=== PATIENT | male | born 1950 | race Caucasian/White ===

== ENCOUNTER 2019-03-09 05:57 | Inpatient (IN) | payer MEDICARE ==
[2019-03-09] MEDS ORDERED: NORMAL SALINE 1000 ML 1,000 ML IV ONE (06:42)
--- NOTE | 2019-03-09 06:51 | ER Document Report ---
ED General - General Chief Complaint: Chest Pain Stated Complaint: ABDOMINAL PAIN,CHEST PAIN Time Seen by Provider: 03/09/19 06:31 Primary Care Provider: CAROL ANN KNIGHT MD [Primary Care Provider] - Follow up as needed Mode of Arrival: Ambulatory Information source: Patient, Relative Notes: This 68-year-old male patient comes emergency room complaining of onset 10 AM last night of left chest and upper abdominal pain. It prevented him from sleeping, at 3 AM he took one nitroglycerin with some relief for about 15 minutes, then the pain came back. He reports he did become diaphoretic and took a shower. About 5 AM he took another nitroglycerin without any improvement. At 5:20 AM he took 1 baby aspirin and since then the pain has improved somewhat but is still present. There is no shortness of breath there is no radiation of the pain. Past medical history significant for coronary artery stent 1996, three- vessel bypass in 1997. He has had no issues since the bypass in 1997. He reports the pain right now is a throbbing pain in his left inferior chest and upper abdomen. The patient and spouse report that they are both DNR status if something should happen and they required resuscitation. TRAVEL OUTSIDE OF THE [place] IN LAST 30 DAYS: No - Related Data Allergies/Adverse Reactions: adhesive tape Adverse Reaction (Verified 03/09/19 06:32) Home Medications: metoprolol 25 mg bid. lisinopril 20 mg qam. avorstatin 20 mg qhs Past Medical History - General Information source: Patient - Social History Smoking Status: Former Smoker Cigarette use (# per day): No - Quit 21 years ago after his stent and bypass surgery Chew tobacco use (# tins/day): No Smoking Education Provided: No Frequency of alcohol use: Occasional Drug Abuse: None Occupation: Retired Lives with: Spouse/Significant other - Recently moved to this area from [place] Family History: Reviewed & Not Pertinent Patient has suicidal ideation: No Patient has homicidal ideation: No - Past Medical History Cardiac Medical History: Reports: Hx Coronary Artery Disease, Hx Hypercholesterolemia, Hx Hypertension Past Surgical History: Reports: Hx Cardiac Catheterization, Hx Coronary Artery Bypass Graft - Three-vessel bypass 1997, Hx Coronary Stent - 1 stent in 1996 Review of Systems - Review of Systems Constitutional: No symptoms reported EENT: No symptoms reported Cardiovascular: See HPI Respiratory: No symptoms reported Gastrointestinal: No symptoms reported Genitourinary: No symptoms reported Musculoskeletal: No symptoms reported Skin: No symptoms reported Hematologic/Lymphatic: No symptoms reported Neurological/Psychological: No symptoms reported Physical Exam - Vital signs Vitals: Temp Pulse Resp BP Pulse Ox 97.1 F 50 L 16 158/67 H 98 03/09/19 06:13 03/09/19 06:13 03/09/19 06:13 03/09/19 06:13 03/09/19 06:13 - General General appearance: Appears well, Alert In distress: None - Patient appears quite stoic - HEENT Head: Normocephalic, Atraumatic Eyes: Normal Pupils: PERRL Mucous membranes: Dry Neck: Normal - Respiratory Respiratory status: No respiratory distress Breath sounds: Normal - Cardiovascular Rhythm: Regular Heart sounds: Normal auscultation Murmur: No - Abdominal Inspection: Normal Distension: No distension Bowel sounds: Normal Tenderness: Tender - Patient is tender in the left medial epigastric region, and tenderness on palpation going distally just along the left medial abdomen. Fem oral pulses are strong and equal. - Back Back: Normal - Extremities General upper extremity: Normal inspection General lower extremity: Normal inspection. No: Edema - Neurological Neuro grossly intact: Yes - Psychological Associated symptoms: Normal affect, Normal mood - Skin Skin Temperature: Warm Skin Moisture: Dry Skin Color: Normal Course - Re-evaluation Re-evalutation: 03/09/19 09:04 Ultrasound shows stones in the gallbladder neck. It does not look like acute cholecystitis. The patient's white blood cell count is elevated with a shift suggesting an infectious process. He will be started on Zosyn, kept n.p.o., and Dr. Ramon is coming to see the patient. 03/09/19 12:09 Dr. Ramon requested I have the hospitalist service admit the patient due to his prior cardiac history, and that he would operate on him in the morning. - Vital Signs Vital signs: Temp Pulse Resp BP Pulse Ox 98.0 F 63 24 H 151/70 H 96 03/09/19 07:37 03/09/19 07:37 03/09/19 11:01 03/09/19 11:01 03/09/19 11:01 - Laboratory Result Diagrams: 03/09/19 07:06 03/09/19 07:06 Laboratory results interpreted by me: 03/09/19 03/09/19 03/09/19 07:06 07:06 07:06 WBC 17.2 H Seg Neuts % (Manual) 89 H Lymphocytes % (Manual) 6 L Abs Neuts (Manual) 15.3 H D-Dimer 0.78 H Sodium 145.3 H BUN 21 H Glucose 150 H Calcium 10.3 H Urine Urobilinogen 03/09/19 08:48 WBC Seg Neuts % (Manual) Lymphocytes % (Manual) Abs Neuts (Manual) D-Dimer Sodium BUN Glucose Calcium Urine Urobilinogen 4.0 H - Diagnostic Test Radiology reviewed: Image reviewed, Reports reviewed - Abdominal ultrasound shows stones in the gallbladder neck, no other abnormalities. - EKG Interpretation by Me EKG shows normal: Sinus rhythm, Seym[place], Intervals, QRS Complexes, ST-T Waves Rate: Bradycardia - 50 Seymour/QRS: RBBB When compared to previous EKG there are: Previous EKG unavailable - Consults Dr. Ramon Time consulted: 09:01 Reason for consultation: 03/09/19 12:10 Gallstone in the gallbladder neck. Consulted provider: will come to ER Dr. Pablo Time consulted: 12:05 Reason for consultation: 03/09/19 12:10 Surgical history requests the hospitalist admit the patient and he will operate on the patient tomorrow morning. Consulted provider: will come to ER Discharge - Discharge Clinical Impression: Cholelithiasis Qualifiers: Cholelithiasis location: gallbladder Cholecystitis presence: with cholecystitis Biliary obstruction: without biliary obstruction Qualified Code(s): K80.20 - Calculus of gallbladder without cholecystitis without obstruction Leukocytosis Qualifiers: Leukocytosis type: unspecified Qualified Code(s): D72.829 - Elevated white blood cell count, unspecified Condition: Stable Disposition: ADMITTED OBSERVATION Admitting Provider: Bev (Hospitalist) Unit Admitted: Telemetry Referrals: CAROL ANN KNIGHT MD [Primary Care Provider] - Follow up as needed
[2019-03-09 07:30] LABS: HEMATOCRIT 47.2 % (37.9-51.0); HEMOGLOBIN 15.9 g/dL (13.5-17.0); MEAN CORPUSCULAR HEMOGLOBIN 29.8 pg (27.0-33.4); MEAN CORPUSCULAR HGB CONC 33.7 g/dL (32.0-36.0); MEAN CORPUSCULAR VOLUME 88 fl (80-97); PLATELET COUNT 186 10^3/uL (150-450); RED BLOOD COUNT 5.35 10^6/uL (4.35-5.55); WHITE BLOOD COUNT 17.2 10^3/uL (4.0-10.5)
--- NOTE | 2019-03-09 07:51 | RADIOLOGY REPORT (SQ) ---
Chest single view on 03/09/2019 at 6:57 AM CLINICAL INDICATION: Chest pain COMPARISON: None FINDINGS: The patient is status post median sternotomy and CABG. The lungs are clear. Cardiac, hilar and mediastinal contours are within normal limits. Pulmonary vascularity is within normal limits. IMPRESSION: No acute disease.
[2019-03-09 07:52] LABS: ALBUMIN 4.9 g/dL (3.5-5.0); ALKALINE PHOSPHATASE 95 U/L (38-126); ANION GAP 14 (5-19); ASPARTATE AMINO TRANSFERASE 26 U/L (17-59); BILIRUBIN,DIRECT 0.2 mg/dL (0.0-0.4); BILIRUBIN,TOTAL 0.8 mg/dL (0.2-1.3); BLOOD UREA NITROGEN 21 mg/dL (7-20); CALCIUM 10.3 mg/dL (8.4-10.2); CARBON DIOXIDE 25 mmol/L (22-30); CHLORIDE 106 mmol/L (98-107); CREATINE KINASE 146 U/L (55-170); GLUCOSE 150 mg/dL (75-110); TOTAL PROTEIN 8.2 g/dL (6.3-8.2)
[2019-03-09 08:00] LABS: ABSOLUTE MONOCYTES # (MANUAL) 0.9 10^3/uL (0.1-1.4); BASOPHILS % (MANUAL) 0 % (0-2); EOSINOPHILS % (MANUAL) 0 % (0-6); LYMPHOCYTES % (MANUAL) 6 % (13-45); MONOCYTES % (MANUAL) 5 % (3-13); PLATELET COMMENT ADEQUATE; RBC MORPHOLOGY COMMENT N; SEGMENTED NEUTROPHILS % (MAN) 89 % (42-78); TOTAL CELLS COUNTED 100; TOXIC VACUOLATION PRESENT
--- NOTE | 2019-03-09 08:30 | RADIOLOGY REPORT (SQ) ---
EXAM DESCRIPTION: U/S ABDOMEN LIMITED W/O DOP COMPLETED DATE/TIME: 03/09/2019 7:32 am REASON FOR STUDY: Epigastric pain, image GB, pancreas, aorta COMPARISON: None. TECHNIQUE: Dynamic and static grayscale images acquired of the abdomen and recorded on PACS. Additio nal selected color Doppler and spectral images recorded. LIMITATIONS: Limited visualization. Poor acoustical window FINDINGS: PANCREAS: No masses. Visualized pancreatic duct normal caliber. LIVER: Normal size Mild fatty infiltration. No focal masses. LIVER VASCULATURE: Normal directional flow of the main portal vein and hepatic veins. GALLBLADDER: Stones in the gallbladder neck. Normal wall thickness. No pericholecystic fluid. ULTRASOUND-DETECTED WILHELM'S SIGN: Negative. INTRAHEPATIC DUCTS AND COMMON DUCT: CBD and intrahepatic ducts normal caliber. No filling defects. INFERIOR VENA CAVA: Normal flow. AORTA: No aneurysm. RIGHT KIDNEY: Normal size. Normal echogenicity. No solid or suspicious masses. No hydronephros is. No calcifications. PERITONEAL AND RIGHT PLEURAL SPACE: No ascites or effusions. OTHER: No other significant findings. IMPRESSION: Cholelithiasis. No evidence of acute cholecystitis. TECHNICAL DOCUMENTATION: JOB ID: [id number] [employer]- All Rights Reserved Reading location - IP/workstation name: [email or web address]
[2019-03-09] MEDS ORDERED: PIPERACILLIN/TAZOBACTAM 3.375 GM VIAL IV ONE (09:03)
[2019-03-09 09:25] LABS: APPEARANCE,URINE SLIGHTLY-CLOUDY; BILIRUBIN,URINE NEGATIVE (NEGATIVE); COLOR,URINE YELLOW; GLUCOSE, URINE NEGATIVE (NEGATIVE); KETONES,URINE NEGATIVE (NEGATIVE); LEUKOCYTE ESTERASE,URINE NEGATIVE (NEGATIVE); NITRITE,URINE NEGATIVE (NEGATIVE); PROTEIN,URINE NEGATIVE (NEGATIVE); URINE SPECIFIC GRAVITY 1.021
--- NOTE | 2019-03-09 12:10 | PDOC CONSULTATION ---
Consultation Consult Date: 03/09/19 Provider Consulted: YOSELYN DIXON Consult reason:: Gallstones with right upper quadrant pain History of Present Illness Admission Date/PCP: CAROL ANN KNIGHT MD History of Present Illness: SHIRA DICKENS is a 68 year old male with history of coronary artery disease and hypertension complain of right upper quadrant and epigastric pains around 10:00 last night after a fatty meal. Pains persisted through the night associated with mild nausea and went to ED this morning. Denies any fever nor chills Past Medical History Cardiac Medical History: Reports: Coronary Artery Disease, Hyperlipidema, Hypertension Past Surgical History Past Surgical History: Reports: Cardiac Catheterization, Coronary Artery Bypass Graft - Three-vessel bypass 1997, Coronary Stent - 1 stent in 1996 Social History Lives with: Spouse/Significant other - Recently moved to this area from [place] Smoking Status: Former Smoker Electronic Cigarette use?: No Frequency of Alcohol Use: Occasional Family History Family History: Reviewed & Not Pertinent Parental Family History Reviewed: Yes Children Family History Reviewed: No Sibling(s) Family History Reviewed.: No Medication/Allergy Allergies/Adverse Reactions: adhesive tape Adverse Reaction (Verified 03/09/19 06:32) Review of Systems Constitutional: PRESENT: as per HPI Gastrointestinal: PRESENT: abdominal pain, nausea Physical Exam Vital Signs: Temp Pulse Resp BP Pulse Ox 98.0 F 63 24 H 151/70 H 96 03/09/19 07:37 03/09/19 07:37 03/09/19 11:01 03/09/19 11:01 03/09/19 11:01 Intake & Output 03/08/19 03/09/19 03/10/19 06:59 06:59 06:59 Intake Total 1000 Balance 1000 Weight 113.1 kg General appearance: PRESENT: mild distress Head exam: PRESENT: atraumatic Eye exam: PRESENT: conjunctiva pink Mouth exam: PRESENT: moist Neck exam: PRESENT: full ROM Respiratory exam: PRESENT: clear to auscultation emigdio Cardiovascular exam: PRESENT: RRR Pulses: PRESENT: normal radial pulses Vascular exam: PRESENT: normal capillary refill GI/Abdominal exam: PRESENT: soft, tenderness - Right upper quadrant Rectal exam: PRESENT: deferred Extremities exam: PRESENT: full ROM Musculoskeletal exam: PRESENT: full ROM Neurological exam: PRESENT: alert, oriented to person, oriented to place, oriented to time, oriented to situation Psychiatric exam: PRESENT: appropriate affect Skin exam: PRESENT: normal color, warm Results Laboratory Results: 03/09/19 07:06 03/09/19 07:06 03/09/19 03/09/19 03/09/19 07:06 07:06 08:48 WBC 17.2 H RBC 5.35 Hgb 15.9 Hct 47.2 MCV 88 MCH 29.8 MCHC 33.7 RDW 13.0 Plt Count 186 Seg Neutrophils % Not Reportable Sodium 145.3 H Potassium 4.0 Chloride 106 Carbon Dioxide 25 Anion Gap 14 BUN 21 H Creatinine 0.99 Est GFR ( Amer) > 60 Glucose 150 H Calcium 10.3 H Total Bilirubin 0.8 AST 26 Alkaline Phosphatase 95 Total Protein 8.2 Albumin 4.9 Lipase 127.9 Urine Color YELLOW Urine Appearance SLIGHTLY-CLOUDY Urine pH 8.0 Ur Specific [place] 1.021 Urine Protein NEGATIVE Urine Glucose (UA) NEGATIVE Urine Ketones NEGATIVE Urine Blood NEGATIVE Urine Nitrite NEGATIVE Ur Leukocyte Esterase NEGATIVE Urine WBC (Auto) 1 Urine RBC (Auto) 3 03/09/19 03/09/19 07:06 07:06 Creatine Kinase 146 Troponin I < 0.012 Impressions: Chest X-Ray 03/09/19 06:42 IMPRESSION: No acute disease. Abdomen Ultrasound 03/09/19 06:43 IMPRESSION: Cholelithiasis. No evidence of acute cholecystitis. Assessment & Plan - Diagnosis (1) Acute cholecystitis Is this a current diagnosis for this admission?: Yes (2) Cholelithiasis Qualifiers: Cholelithiasis location: gallbladder Cholecystitis presence: with henny cystitis Biliary obstruction: without biliary obstruction Qualified Code(s): K80.20 - Calculus of gallbladder without cholecystitis without obstruction Is this a current diagnosis for this admission?: Yes (3) Leukocytosis Qualifiers: Leukocytosis type: unspecified Qualified Code(s): D72.829 - Elevated white blood cell count, unspecified - Time Time Spent: 30 to 50 Minutes - Inpatient Certification Medical Necessity: Need For IV Fluids, Need for Pain Control, Need for IV Antibiotics, Need for Surgery - Plan Summary Plan Summary: 6-year-old male with coronary artery disease and hypertension complaining of right upper quadrant pains after a fatty meal last night. Ultrasound of the abdomen today showed gallstones possibly obstructing the cystic duct. His white count is elevated. Plans: We will schedule for laparoscopic cholecystectomy tomorrow after medical clearance. Meantime continue with IV antibiotics and n.p.o. from midnight
[2019-03-09] MEDS: NORMAL SALINE 1000 ML 1,000 ML IV PRN (15:45)
--- NOTE | 2019-03-09 17:20 | EKG REPORT ---
SEVERITY:- ABNORMAL ECG - ACCELERATED IDIOVENTRICULAR RHYTHM (2 BEATS)BEFORE SINUS RHYTHM SINUS RHYTHM RIGHT BUNDLE BRANCH BLOCK : Confirmed by: Noman Allen MD 09-Mar-2019 17:19:44
--- NOTE | 2019-03-09 17:37 | RADIOLOGY REPORT (SQ) ---
EXAM DESCRIPTION: NM LUNG VENT/PERF SCAN COMPLETED DATE/TIME: 03/09/2019 5:07 pm REASON FOR STUDY: cp, new RBBB, elevated d-dimer COMPARISON: Earlier chest radiograph RADIONUCLIDE AND DOSE: 5.24 millicuries TC-99m MAA Intravenous 31.7 millicuries TC-99m DTPA Inhaled aerosol TECHNIQUE: Eight views of the lungs acquired post ventilation of DTPA aerosol. Eight matching views of the lungs acquired following injection of MAA. LIMITATIONS: None. FINDINGS: VENTILATION: Symmetric and minimally heterogeneous distribution of DTPA aerosol during santosh tilatory phase. No significant areas of photopenia. PERFUSION: Perfusion images with minimally heterogeneous activity and no wedge-shaped or segmental de fects. No ventilation-perfusion mismatches. OTHER: No other significant finding. IMPRESSION: No ventilation-perfusion mismatches. TECHNICAL DOCUMENTATION: JOB ID: [id number] [place]-[id number] 2010 [employer]- All Rights Reserved Reading location - IP/workstation name: [email or web address]
--- NOTE | 2019-03-09 18:47 | PDOC H&P ---
History of Present Illness Admission Date/PCP: CAROL ANN KNIGHT MD Patient complains of: epigastric pain History of Present Illness: SHIRA DICKENS is a 68 year old male past medical history of CAD, with prior stenting, history of artery bypass in 1997, hypertension and hyperlipidemia who presented with epigastric pain. Patient says he has been apparently fine until last night when he started having epigastric pain, sharp in character, 8/10 intensity. He says that he did eat some pizza last night. He denies shortness of breath. He says that he took s ome nitro around 2 AM and did get some relief. He also took some aspirin and reported some relief from it. In the ER, work-up was remarkable for cholelithiasis. He does indicate it is more of epigastric and right-sided costal pain rather than chest pain. He denies shortness of breath. Past Medical History Cardiac Medical History: Reports: Coronary Artery Disease, Hyperlipidema, Hypertension Past Surgical History Past Surgical History: Reports: Cardiac Catheterization, Coronary Artery Bypass Graft - Three-vessel bypass 1997, Coronary Stent - 1 stent in 1996 Social History Lives with: Spouse/Significant other - Recently moved to this area from [place] Smoking Status: Former Smoker Electronic Cigarette use?: No Frequency of Alcohol Use: Occasional Family History Family History: Reviewed & Not Pertinent Parental Family History Reviewed: Yes - no premature CAD Children Family History Reviewed: No Sibling(s) Family History Reviewed.: No Medication/Allergy Home Medications: Aspirin [Ecotrin 81 mg EC Tablet] 81 mg PO DAILY 03/09/19 Atorvastatin Calcium [Lipitor 20 mg Tablet] 20 mg PO QPM 03/09/19 Lisinopril [Prinivil 10 mg Tablet] 10 mg PO DAILY 03/09/19 Metoprolol Tartrate [Lopressor 25 mg Tablet] 25 mg PO Q12 03/09/19 Nitroglycerin [Nitrostat] 0.3 mg SL Q5MP PRN 03/09/19 Vitamin B Complex [Super B Complex] 1 each PO QPM 03/09/19 Allergies/Adverse Reactions: adhesive tape Adverse Reaction (Verified 03/09/19 06:32) Review of Systems All systems: reviewed and no additional remarkable complaints except as stated - as mentioned in HPI Physical Exam Vital Signs: Temp Pulse Resp BP Pulse Ox 98.0 F 63 24 H 151/70 H 96 03/09/19 07:37 03/09/19 07:37 03/09/19 11:01 03/09/19 11:01 03/09/19 11:01 Intake & Output 03/08/19 03/09/19 03/10/19 06:59 06:59 06:59 Intake Total 1000 Balance 1000 Weight 249 lb 5.485 oz General appearance: PRESENT: no acute distress, well-developed, well-nourished Head exam: PRESENT: atraumatic, normocephalic Eye exam: PRESENT: conjunctiva pink, EOMI, PERRLA. ABSENT: scleral icterus Ear exam: PRESENT: normal external ear exam Mouth exam: PRESENT: moist, tongue midline Neck exam: ABSENT: carotid bruit, JVD, lymphadenopathy, thyromegaly Respiratory exam: PRESENT: clear to auscultation emigdio. ABSENT: rales, rhonchi, wheezes Cardiovascular exam: PRESENT: RRR. ABSENT: diastolic murmur, rubs, systolic murmur Pulses: PRESENT: normal dorsalis pedis pul GI/Abdominal exam: PRESENT: normal bowel sounds, soft. ABSENT: distended, guarding, mass, organolmegaly, rebound, tenderness Rectal exam: PRESENT: deferred Extremities exam: PRESENT: full ROM. ABSENT: calf tenderness, clubbing, pedal edema Neurological exam: PRESENT: alert, awake, oriented to person, oriented to place, oriented to time, oriented to situation, CN II-XII grossly intact. ABSENT: motor sensory deficit Results Laboratory Results: 03/09/19 07:06 03/09/19 07:06 03/09/19 03/09/19 03/09/19 07:06 07:06 08:48 WBC 17.2 H RBC 5.35 Hgb 15.9 Hct 47.2 MCV 88 MCH 29.8 MCHC 33.7 RDW 13.0 Plt Count 186 Seg Neutrophils % Not Reportable Sodium 145.3 H Potassium 4.0 Chloride 106 Carbon Dioxide 25 Anion Gap 14 BUN 21 H Creatinine 0.99 Est GFR ( Amer) > 60 Glucose 150 H Calcium 10.3 H Total Bilirubin 0.8 AST 26 Alkaline Phosphatase 95 Total Protein 8.2 Albumin 4.9 Lipase 127.9 Urine Color YELLOW Urine Appearance SLIGHTLY-CLOUDY Urine pH 8.0 Ur Specific [place] 1.021 Urine Protein NEGATIVE Urine Glucose (UA) NEGATIVE Urine Ketones NEGATIVE Urine Blood NEGATIVE Urine Nitrite NEGATIVE Ur Leukocyte Esterase NEGATIVE Urine WBC (Auto) 1 Urine RBC (Auto) 3 03/09/19 03/09/19 07:06 07:06 Creatine Kinase 146 Troponin I < 0.012 Impressions: Chest X-Ray 03/09/19 06:42 IMPRESSION: No acute disease. Abdomen Ultrasound 03/09/19 06:43 IMPRESSION: Cholelithiasis. No evidence of acute cholecystitis. Assessment and Plan - Diagnosis (1) Epigastric pain Is this a current diagnosis for this admission?: Yes Plan: Patient indicates it is more of epigastric and right subcostal pain rather than chest pain. He denies he had left-sided chest pain. EKG shows right bundle bran ch block. Troponin is normal. No previous EKG to compare with as patient just moved from [place]. (2) Cholelithiasis Qualifiers: Cholelithiasis location: gallbladder Cholecystitis presence: with cholecystitis Biliary obstruction: without biliary obstruction Qualified Code(s): K80.20 - Calculus of gallbladder without cholecystitis without obstruction Is this a current diagnosis for this admission?: Yes Plan: He is going for laparoscopic cholecystectomy with surgery tomorrow. (3) Hypertension Is this a current diagnosis for this admission?: Yes Plan: Resume home meds once verified. (4) CAD (coronary artery disease) Is this a current diagnosis for this admission?: Yes - Time Time Spent with patient: 25-34 minutes
--- NOTE | 2019-03-09 18:48 | ADVANCED CARE ---
- Diagnosis (1) Cholelithiasis Diagnosis Current: Yes (2) CAD (coronary artery disease) Diagnosis Current: Yes (3) Hypertension Diagnosis Current: Yes Resuscitation Status: Do Not Resuscitate Discussion: Patient says that he is a DNR/DNI. He did verbalize that for the purposes of surgery however, he is amenable to temporary or short-term intubation/ventilation. He says that his , Blacna is his surrogate medical decision maker.
[2019-03-09] MEDS: HEPARIN SOD (PORCINE) 5,000 UNIT/ML 1 ML VIAL SUBCUT SCH (21:20)
[2019-03-10] MEDS: NORMAL SALINE 1000 ML 1,000 ML IV PRN (02:42)
[2019-03-10] MEDS: HEPARIN SOD (PORCINE) 5,000 UNIT/ML 1 ML VIAL SUBCUT SCH ×2 (09:11→22:25)
[2019-03-10] MEDS: CEFTRIAXONE 1 GM/D5W RTU 1 GM/50 ML RTUPB IV SCH (09:14)
--- NOTE | 2019-03-10 10:03 | PDOC PROGRESS REPORT ---
Subjective Progress Note for:: 03/10/19 Reason For Visit: ATYPICAL CHEST PAIN,CHOLELITHIASIS Patient feels better; markedly relieved preadmission symptoms. He is n.p.o. Lovenox for this morning held. Physical Exam Vital Signs: Temp Pulse Resp BP Pulse Ox 99.8 F 61 17 127/56 H 96 03/10/19 07:38 03/10/19 07:38 03/10/19 07:38 03/10/19 07:38 03/10/19 07:38 Intake & Output 03/09/19 03/10/19 03/11/19 06:59 06:59 06:59 Intake Total 2660 Balance 2660 Weight 113.1 kg 115.5 kg General appearance: PRESENT: no acute distress GI/Abdominal exam: PRESENT: other - Soft, minimally tender right upper quadrant; no rigidity no peritoneal signs. Results Laboratory Results: 03/09/19 07:06 03/09/19 07:06 03/09/19 03/09/19 07:06 07:06 Creatine Kinase 146 Troponin I < 0.012 Impressions: Chest X-Ray 03/09/19 06:42 IMPRESSION: No acute disease. Abdomen Ultrasound 03/09/19 06:43 IMPRESSION: Cholelithiasis. No evidence of acute cholecystitis. Lung Scan-VQ NM 03/09/19 14:15 IMPRESSION: No ventilation-perfusion mismatches. Assessment & Plan - Diagnosis (1) Cholelithiasis Qualifiers: Cholelithiasis location: gallbladder Cholecystitis presence: with cholecystitis Biliary obstruction: without biliary obstruction Qualified Code(s): K80.20 - Calculus of gallbladder without cholecystitis without obstruction Is this a current diagnosis for this admission?: Yes Plan: Impression: Symptomatic cholelithiasis with cholecystitis and patient with history of coronary artery disease, status post CABG; he is a DNR. Clinically stable; acute myocardial and pulmonary issues ruled out. Recommendations: 1. We will proceed with laparoscopic, possible open cholecystectomy today, [facility], general anesthesia, by Dr. Taylor. An explanation of the operation, as well as risk benefits alternatives including bleeding, infection, bile duct injury and need for additional surgery explained to the patient. 2. Patient is a DNR by choice. I explained to the patient that his DNR status will be suspended during the duration of the operation. He expresses understanding and agrees to proceed. (2) CAD (coronary artery disease) Is this a current diagnosis for this admission?: Yes - Time Time Spent with patient: 15-24 minutes
[2019-03-10] MEDS ORDERED: MIDAZOLAM 2 MG/2 ML INJ ONE (11:35)
[2019-03-10] MEDS ORDERED: FENTANYL CITRATE INJ/PF 250 MCG/5 ML AMPULE ONE (11:35)
[2019-03-10] MEDS ORDERED: PROPOFOL INJ 200 MG/20 ML VIAL IV ONE (11:36)
[2019-03-10] MEDS ORDERED: BUPIVACAINE HCL 0.25 % INJ/PF (2.5 MG/1 ML) 30 ML VIAL ONE (11:46)
[2019-03-10] MEDS ORDERED: DIPHENHYDRAMINE HCL 50 MG/ML VIAL IV PRN (12:36)
[2019-03-10] MEDS ORDERED: MORPHINE SULFATE 10 MG/ML INJ IV PRN (12:36)
[2019-03-10] MEDS ORDERED: MEPERIDINE HCL/PF INJ 25 MG/1 ML DISP.SYRIN IV PRN (12:36)
[2019-03-10] MEDS ORDERED: PROMETHAZINE HCL INJ 25 MG/1 ML VIAL IV PRN (12:36)
[2019-03-10] MEDS ORDERED: FENTANYL CITRATE INJ/PF 100 MCG/2 ML AMPUL IV PRN ×3 (12:36)
[2019-03-10] MEDS ORDERED: BUPIVACAINE HCL 0.25 % INJ/PF (2.5 MG/1 ML) 30 ML VIAL INJ ONE ×2 (12:48)
[2019-03-10] MEDS ORDERED: DEXAMETHASONE SOD PHOSPHATE INJ 4 MG/1 ML VIAL ONE (13:05)
[2019-03-10] MEDS ORDERED: GLYCOPYRROLATE 1 MG/5 ML VIAL ONE (13:05)
[2019-03-10] MEDS ORDERED: NEOSTIGMINE METHYLSULFATE 10 MG/10 ML VIAL ONE (13:05)
[2019-03-10] MEDS ORDERED: ONDANSETRON HCL INJ/PF 4 MG/2 ML SDV ONE (13:05)
[2019-03-10] MEDS ORDERED: ROCURONIUM BROMIDE INJ 50 MG/5 ML VIAL IV ONE (13:05)
[2019-03-10] MEDS ORDERED: SUCCINYLCHOLINE CHLORIDE INJ 200 MG/10 ML VIAL ONE (13:05)
[2019-03-10] MEDS ORDERED: (PENDING PHARMACY ID) (Nitroglycerin [Nitrostat] 0.3 MG) SL PRN (13:50)
--- NOTE | 2019-03-10 13:51 | PDOC PROGRESS REPORT ---
Subjective Progress Note for:: 03/10/19 Subjective:: No acute event overnight. Denies chest pain or shortness of breath. He does complain of intermittent right upper quadrant, colicky abdominal pain. Patient is going for laparoscopic cholecystectomy today. We rediscussed his CODE STATUS as he mentioned in passing that his wanted him to be a full code. He confirms that he remains a DNR but is amenable to temporary intubation/mechanical ventilation for surgery purposes. Reason For Visit: ATYPICAL CHEST PAIN,CHOLELITHIASIS Physical Exam Vital Signs: Temp Pulse Resp BP Pulse Ox 99.8 F 61 17 127/56 H 96 03/10/19 07:38 03/10/19 07:38 03/10/19 07:38 03/10/19 07:38 03/10/19 07:38 Intake & Output 03/09/19 03/10/19 03/11/19 06:59 06:59 06:59 Intake Total 2660 50 Balance 2660 50 Weight 249 lb 5.485 oz 254 lb 10.142 oz General appearance: PRESENT: no acute distress, well-developed, well-nourished Head exam: PRESENT: atraumatic, normocephalic Eye exam: PRESENT: conjunctiva pink, EOMI, PERRLA. ABSENT: scleral icterus Ear exam: PRESENT: normal external ear exam Mouth exam: PRESENT: moist, tongue midline Neck exam: ABSENT: carotid bruit, JVD, lymphadenopathy, thyromegaly Respiratory exam: PRESENT: clear to auscultation emigdio. ABSENT: rales, rhonchi, wheezes Cardiovascular exam: PRESENT: RRR. ABSENT: diastolic murmur, rubs, systolic murmur Pulses: PRESENT: normal dorsalis pedis pul GI/Abdominal exam: PRESENT: normal bowel sounds, soft. ABSENT: distended, guarding, mass, organolmegaly, rebound Rectal exam: PRESENT: deferred Extremities exam: PRESENT: full ROM. ABSENT: calf tenderness, clubbing, pedal edema Neurological exam: PRESENT: alert, awake, oriented to person, oriented to place, oriented to time, oriented to situation, CN II-XII grossly intact. ABSENT: motor sensory deficit Results Laboratory Results: 03/09/19 07:06 03/09/19 07:06 03/09/19 03/09/19 07:06 07:06 Creatine Kinase 146 Troponin I < 0.012 Impressions: Chest X-Ray 03/09/19 06:42 IMPRESSION: No acute disease. Abdomen Ultrasound 03/09/19 06:43 IMPRESSION: Cholelithiasis. No evidence of acute cholecystitis. Lung Scan-VQ NM 03/09/19 14:15 IMPRESSION: No ventilation-perfusion mismatches. Assessment and Plan - Diagnosis (1) Cholelithiasis Qualifiers: Cholelithiasis location: gallbladder Cholecystitis presence: with cholecystitis Biliary obstruction: without biliary obstruction Qualified Code(s): K80.20 - Calculus of gallbladder without cholecystitis without obstruction Is this a current diagnosis for this admission?: Yes Plan: He is going for laparoscopic cholecystectomy today. (2) Epigastric pain Is this a current diagnosis for this admission?: Yes Plan: When further probed, he clarified he did not have chest pain. Secondary to number 1 rather than cardiac or pulmonary in origin. EKG showed right bundle branch block. D-dimer was elevated but VQ was negative. Troponin is normal. No previous EKG to compare with as patient just moved from [place]. (3) Hypertension Is this a current diagnosis for this admission?: Yes Plan: Resume home meds. (4) CAD (coronary artery disease) Is this a current diagnosis for this admission?: Yes Plan: Stable. - Time Time Spent with patient: 25-34 minutes
--- NOTE | 2019-03-10 14:15 | Operative Report ---
Operative Report DATE OF SURGERY: 03/10/19 PREOPERATIVE DIAGNOSIS: Acute cholecystitis with cholelithiasis POSTOPERATIVE DIAGNOSIS: Same OPERATION: 1. Laparoscopic cholecystectomy. 2. Extremely difficult modifier. 3. Drainage of subhepatic space SURGEON: DELL CIFUENTES 1ST LOT PORTER: JAIRON MERLOS ANESTHESIA: GA TISSUE REMOVED OR ALTERED: 1 gallbladder with contents COMPLICATIONS: None ESTIMATED BLOOD LOSS: 250 cc INTRAOPERATIVE FINDINGS: See below PROCEDURE: The patient was taken the preop holding her to the main operating room where general anesthesia was induced. Of note the patient preoperatively was a known DO NOT RESUSCITATE, however per hospital guidelines, the DNR status was suspended during the duration of the operation. The patient was in agreement with this. The abdomen was exposed, prepped and draped in sterile fashion. Surgical plan surgical timeout were conducted. Skin markings were made for for port laparoscopic surgery. Skin was anesthetized with 1% plain lidocaine. A supraumbilical vertical incision was made with a knife, 15 blade, Veress needle inserted the peritoneal cavity pneumoperitoneum established. Veress needle was removed, 5 mm ports established and the flexible 5 mm Endo I was inserted the peritoneal cavity. There was no evidence of visceral or vascular injury. Of note there were adhesions in the right lower quadrant consistent with previous surgery. Under direct visualization 3 additional 5 mm ports were placed in the patient one subxiphoid and 2 subcostal. Findings were significant for an acutely inflamed gallbladder, with the fundus becoming ischemic. Photos were taken. We aspirated the gallbladder for approximately 10 cc of old blood. We now placed graspers on the fundus and reflected the gallbladder up over the liver bed. Unfortunately due to body habitus, and distended, edematous nature of the gallbladder, it was difficult to get elevation of the infundibulum with the second grasper. For this reason we switched our grasper positions, and began taking the gallbladder down from the fundus. This proceeded uneventfully until we were approximately one third through the separation of the inferior surface of the liver plate with the gallbladder. We then encountered a significant amount of bleeding. It was difficult to ascertain whether this is arterial or venous but was likely arterial. At this point we came across no structures consistent with the cystic artery. The bleeding was coming from the inferior surface of the liver centrally, not on the left nor on the right sides of the peritoneal reflection. Using a combination of Surgicel and gentle pressure without success, We now introduced another 5 mm port, and a fan retractor to assist with visualizing this area however the welling up of the blood was rather brisk. I called my colleague into the room, Dr. Flex Merlos, who provided retracting assistance , visual inspection, and clinical acumen during this portion of the operation. We used a combination of suction and gentle traction to continue the posterior surface of the gallbladder from the bleeding point, now freeing up the bladder down to the infundibulum. Of note, no vascular structures were divided as none were encountered during this time. We were now able to place the Surgicel and apply direct pressure right on the bleeding site. Within a short time, the bleeding abated. We estimated that approximately 250 cc of blood was lost from the initiation of the cholecystectomy to this point in the operation. Dring this time, we had excellent visualization, tissue retraction; the patient remained hemodynamically stable. We were now able to very clearly expose the critical structures fixing the gallbladder to the patient, including the cystic duct and cystic artery. These structures were in their predictable location, however the cystic artery was generous in diameter with several branch points. Photographs were taken. We got around the cystic artery cleanly , photographed the cystic artery, clipped the cystic artery 2 times proximally once distally and divided with scissors. We now had the gallbladder suspended from the infundibular-neck junction. Order to reduce the risk of additional bleeding, and injury to more proximal structures, we elected to take the gallbladder at junction. We brought onto the field two 0 PDS loops secured them in place at the base of the infundibulum- neck junction of the gallbladder. Photos were taken. We now divided the gallbladder from the neck, allowing the cystic duct stump to retract. We now brought onto the field an Endobag through the supraumbilical port site after opening up the fascia, and placed the gallbladder and loose stones into the Endobag. The specimen was brought out of the patient through the supraumbilical port site and sent to pathology for permanent analysis We returned to the peritoneal cavity , checked for bleeding and there was none. In particular we studied the raw inferior surface of the liver, and left the Surgicel in place. Photos were taken. A large Parvez drain was placed through 1 of the subcostal incision sites and secured to the skin with 2-0 Prolene suture. The drain was placed in the subhepatic space. We levelled the patient, and checked for bleeding and there was none. We placed a few additional pieces of Surgicel in the subhepatic area. Photos were taken. The patient remained hemodynamically stable and there was no indication to manipulate the hemostatic material on the liver surface. Photos were taken. At this point we felt the operation was complete. Sponge and counts were correct. A flat lesion on the right inferior surface of the capsule of the liver insufflated and photographed. It was approximately 1.5 cm in diameter. All ports removed under direct visualization, pneumoperitoneum evacuated, wounds closed with 0 Vicryl at the supraumbilical port site, and 3-0 Vicryl at the dermal level for all 5 mm port sites. The drain was secured to the skin with 2- 0 Prolene suture and hooked to a bulb vacuum device. Patient tolerated the procedure well, extubated, and taken recovery in stable condition.
[2019-03-10] MEDS ORDERED: (PENDING PHARMACY ID) (Vitamin B Complex [Super B Complex] 1 EACH) PO SCH (18:00)
[2019-03-10] MEDS: VITAMIN B COMPLEX TABLET PO SCH (18:11)
[2019-03-10] MEDS: ATORVASTATIN CALCIUM 20 MG TABLET PO SCH (18:11)
[2019-03-10] MEDS: METOPROLOL TARTRATE 25 MG TABLET PO SCH (22:25)
[2019-03-11] MEDS: ASPIRIN 81 MG TABLET, ENT COATED PO SCH (09:26)
[2019-03-11] MEDS: METOPROLOL TARTRATE 25 MG TABLET PO SCH ×2 (09:27→21:59)
[2019-03-11] MEDS: LISINOPRIL 10 MG TABLET PO SCH (09:27)
[2019-03-11] MEDS: CEFTRIAXONE 1 GM/D5W RTU 1 GM/50 ML RTUPB IV SCH (09:27)
[2019-03-11] MEDS: HEPARIN SOD (PORCINE) 5,000 UNIT/ML 1 ML VIAL SUBCUT SCH ×2 (09:28→22:00)
[2019-03-11 09:29] LABS: BASOPHILS % (AUTO) 0.1 % (0-2); EOSINOPHILS % (AUTO) 0.1 % (0-6); MEAN CORPUSCULAR VOLUME 89 fl (80-97); MONOCYTES % (AUTO) 6.5 % (3-13); PLATELET COUNT 142 10^3/uL (150-450); RED BLOOD COUNT 4.39 10^6/uL (4.35-5.55); TOTAL CELLS COUNTED % (AUTO) 100 %
[2019-03-11 09:31] LABS: WHITE BLOOD COUNT 19.2 10^3/uL (4.0-10.5)
[2019-03-11 09:32] LABS: ABSOLUTE MONOCYTES (AUTO) 1.2 10^3/uL (0.1-1.4); HEMATOCRIT 39.1 % (37.9-51.0); LYMPHOCYTES % (AUTO) 5.1 % (13-45); MEAN CORPUSCULAR HEMOGLOBIN 30.3 pg (27.0-33.4); MEAN CORPUSCULAR HGB CONC 34.1 g/dL (32.0-36.0); RED CELL DISTRIBUTION WIDTH 13.4 % (11.5-14.0); SEGMENTED NEUTROPHILS % (AUTO) 88.2 % (42-78)
[2019-03-11 09:37] LABS: HEMOGLOBIN 13.3 g/dL (13.5-17.0)
[2019-03-11 09:44] LABS: ALBUMIN 3.7 g/dL (3.5-5.0); ALKALINE PHOSPHATASE 51 U/L (38-126); ANION GAP 10 (5-19); ASPARTATE AMINO TRANSFERASE 40 U/L (17-59); BILIRUBIN,DIRECT 0.2 mg/dL (0.0-0.4); BILIRUBIN,TOTAL 1.4 mg/dL (0.2-1.3); BLOOD UREA NITROGEN 12 mg/dL (7-20); CALCIUM 8.7 mg/dL (8.4-10.2); CARBON DIOXIDE 28 mmol/L (22-30); CHLORIDE 100 mmol/L (98-107); GLUCOSE 121 mg/dL (75-110); POTASSIUM 3.8 mmol/L (3.6-5.0); TOTAL PROTEIN 6.7 g/dL (6.3-8.2)
--- NOTE | 2019-03-11 14:01 | PDOC PROGRESS REPORT ---
Subjective Progress Note for:: 03/11/19 Reason For Visit: ATYPICAL CHEST PAIN,CHOLELITHIASIS Physical Exam Vital Signs: Temp Pulse Resp BP Pulse Ox 99.1 F 71 17 136/71 H 94 03/11/19 10:55 03/11/19 10:55 03/11/19 10:55 03/11/19 10:55 03/11/19 10:55 Intake & Output 03/10/19 03/11/19 03/12/19 06:59 06:59 06:59 Intake Total 2660 3100 50 Output Total 450 140 Balance 2660 2650 -90 Weight 115.5 kg 109.6 kg Results Laboratory Results: 03/11/19 08:45 03/11/19 08:45 03/11/19 03/11/19 08:45 08:45 WBC 19.2 H RBC 4.39 Hgb 13.3 L D Hct 39.1 MCV 89 MCH 30.3 MCHC 34.1 RDW 13.4 Plt Count 142 L Seg Neutrophils % 88.2 H Sodium 137.7 Potassium 3.8 Chloride 100 Carbon Dioxide 28 Anion Gap 10 BUN 12 Creatinine 0.87 Est GFR ( Amer) > 60 Glucose 121 H Calcium 8.7 Total Bilirubin 1.4 H AST 40 Alkaline Phosphatase 51 Total Protein 6.7 Albumin 3.7 03/09/19 03/09/19 07:06 07:06 Creatine Kinase 146 Troponin I < 0.012 Impressions: Chest X-Ray 03/09/19 06:42 IMPRESSION: No acute disease. Abdomen Ultrasound 03/09/19 06:43 IMPRESSION: Cholelithiasis. No evidence of acute cholecystitis. Lung Scan-VQ NM 03/09/19 14:15 IMPRESSION: No ventilation-perfusion mismatches. Assessment & Plan - Diagnosis (1) Acute cholecystitis Is this a current diagnosis for this admission?: Yes - Time Time Spent with patient: Less than 15 minutes - Plan Summary Plan Summary: This is a 68-year-old male status post laparoscopic cholecystectomy for acute, gangrenous cholecystitis. The patient is feeling much improved today. His QUINTON drain is productive of dark, sanguinous fluid. He reports feeling much improved today. His abdominal pain is less than yesterday. I will advance his diet. Recheck labs tomorrow. Leave drain in place for now. Will follow.
--- NOTE | 2019-03-11 16:44 | PDOC PROGRESS REPORT ---
Subjective Progress Note for:: 03/11/19 Reason For Visit: ATYPICAL CHEST PAIN,S/P LAP CHOL March 11, 2019 Patient underwent a upper scopic cholecystectomy yesterday. Patient is doing well sitting up in a chair Physical Exam Vital Signs: Temp Pulse Resp BP Pulse Ox 99.1 F 67 17 136/71 H 94 03/11/19 10:55 03/11/19 14:00 03/11/19 10:55 03/11/19 10:55 03/11/19 10:55 Intake & Output 03/10/19 03/11/19 03/12/19 06:59 06:59 06:59 Intake Total 2660 3100 50 Output Total 450 140 Balance 2660 2650 -90 Weight 115.5 kg 109.6 kg General appearance: PRESENT: no acute distress, other - Patient states he will be ready to go home tomorrow Respiratory exam: PRESENT: clear to auscultation emigdio. ABSENT: rales, rhonchi, wheezes Cardiovascular exam: PRESENT: RRR. ABSENT: diastolic murmur, rubs, systolic murmur Neurological exam: PRESENT: alert, awake, oriented to person, oriented to place, oriented to time, oriented to situation, CN II-XII grossly intact. ABSENT: motor sensory deficit Psychiatric exam: PRESENT: appropriate affect, normal mood. ABSENT: homicidal ideation, suicidal ideation Results Laboratory Results: 03/11/19 08:45 03/11/19 08:45 03/11/19 03/11/19 08:45 08:45 WBC 19.2 H RBC 4.39 Hgb 13.3 L D Hct 39.1 MCV 89 MCH 30.3 MCHC 34.1 RDW 13.4 Plt Count 142 L Seg Neutrophils % 88.2 H Sodium 137.7 Potassium 3.8 Chloride 100 Carbon Dioxide 28 Anion Gap 10 BUN 12 Creatinine 0.87 Est GFR ( Amer) > 60 Glucose 121 H Calcium 8.7 Total Bilirubin 1.4 H AST 40 Alkaline Phosphatase 51 Total Protein 6.7 Albumin 3.7 03/09/19 03/09/19 07:06 07:06 Creatine Kinase 146 Troponin I < 0.012 Impressions: Chest X-Ray 03/09/19 06:42 IMPRESSION: No acute disease. Abdomen Ultrasound 03/09/19 06:43 IMPRESSION: Cholelithiasis. No evidence of acute cholecystitis. Lung Scan-VQ NM 03/09/19 14:15 IMPRESSION: No ventilation-perfusion mismatches. Assessment and Plan - Diagnosis (1) Acute cholecystitis Is this a current diagnosis for this admission?: Yes (2) CAD (coronary artery disease) Is this a current diagnosis for this admission?: Yes (3) Cholelithiasis Qualifiers: Cholelithiasis location: gallbladder Cholecystitis presence: with cholecystitis Biliary obstruction: without biliary obstruction Qualified Code(s): K80.20 - Calculus of gallbladder without cholecystitis without obstruction Is this a current diagnosis for this admission?: Yes (4) Epigastric pain Is this a current diagnosis for this admission?: Yes (5) Hypertension Is this a current diagnosis for this admission?: Yes (6) Leukocytosis Qualifiers: Leukocytosis type: unspecified Qualified Code(s): D72.829 - Elevated white blood cell count, unspecified Is this a current diagnosis for this admission?: Yes - Plan Summary Summary: 03/11/2019 His vital signs are stable temperature 99.1, pulse 71 and regular, blood pressure is 136/71 ,O2 sats 94% on room air Patient is sitting up in the chair with no complaints Labs appear stable, culture shows no growth in 48 hours Currently on IV Rocephin postop day #1 - Time Time Spent with patient: 25-34 minutes
[2019-03-11] MEDS: VITAMIN B COMPLEX TABLET PO SCH (18:25)
[2019-03-11] MEDS: ATORVASTATIN CALCIUM 20 MG TABLET PO SCH (18:25)
[2019-03-12 04:42] LABS: ABSOLUTE EOSINOPHILS # (AUTO) 0.1 10^3/uL (0.0-0.6); ABSOLUTE LYMPHOCYTES (AUTO) 0.9 10^3/uL (0.5-4.7); ABSOLUTE MONOCYTES (AUTO) 1.3 10^3/uL (0.1-1.4); ABSOLUTE NEUT (AUTO) 12.4 10^3/uL (1.7-8.2); BASOPHILS % (AUTO) 0.3 % (0-2); EOSINOPHILS % (AUTO) 0.6 % (0-6); HEMATOCRIT 35.5 % (37.9-51.0); HEMOGLOBIN 12.4 g/dL (13.5-17.0); LYMPHOCYTES % (AUTO) 6.2 % (13-45); MEAN CORPUSCULAR HEMOGLOBIN 30.6 pg (27.0-33.4); MEAN CORPUSCULAR VOLUME 87 fl (80-97); MONOCYTES % (AUTO) 8.5 % (3-13); PLATELET COUNT 142 10^3/uL (150-450); RED BLOOD COUNT 4.06 10^6/uL (4.35-5.55); RED CELL DISTRIBUTION WIDTH 12.8 % (11.5-14.0); SEGMENTED NEUTROPHILS % (AUTO) 84.4 % (42-78); TOTAL CELLS COUNTED % (AUTO) 100 %; WHITE BLOOD COUNT 14.7 10^3/uL (4.0-10.5)
[2019-03-12 05:08] LABS: ALBUMIN 3.1 g/dL (3.5-5.0); ALKALINE PHOSPHATASE 51 U/L (38-126); ANION GAP 12 (5-19); ASPARTATE AMINO TRANSFERASE 26 U/L (17-59); BILIRUBIN,DIRECT 0.2 mg/dL (0.0-0.4); BILIRUBIN,TOTAL 1.2 mg/dL (0.2-1.3); BLOOD UREA NITROGEN 13 mg/dL (7-20); CALCIUM 8.7 mg/dL (8.4-10.2); CARBON DIOXIDE 23 mmol/L (22-30); CHLORIDE 105 mmol/L (98-107); GLUCOSE 106 mg/dL (75-110); POTASSIUM 3.6 mmol/L (3.6-5.0)
[2019-03-12] MEDS: HEPARIN SOD (PORCINE) 5,000 UNIT/ML 1 ML VIAL SUBCUT SCH (09:05)
--- NOTE | 2019-03-12 09:11 | PDOC PROGRESS REPORT ---
Subjective Progress Note for:: 03/12/19 Subjective:: Patient sitting in a chair, tolerating full liquids; managed. Been putting out 100+ cc of serosanguineous fluid overnight. Reason For Visit: ATYPICAL CHEST PAIN,S/P LAP JASON Physical Exam Vital Signs: Temp Pulse Resp BP Pulse Ox 99.6 F 58 L 19 133/63 H 94 03/12/19 07:41 03/12/19 07:41 03/12/19 07:41 03/12/19 07:41 03/12/19 07:41 Intake & Output 03/11/19 03/12/19 03/13/19 06:59 06:59 06:59 Intake Total 3100 1870 Output Total 450 150 Balance 2650 1720 Weight 109.6 kg 108.2 kg General appearance: PRESENT: no acute distress GI/Abdominal exam: PRESENT: other - Abdomen is inspected; Steri-Strips in place; serosanguineous fluid in drain; no peritoneal signs. Results Laboratory Results: 03/12/19 04:08 03/12/19 04:08 03/11/19 03/11/19 03/12/19 08:45 08:45 04:08 WBC 19.2 H 14.7 H RBC 4.39 4.06 L Hgb 13.3 L D 12.4 L Hct 39.1 35.5 L MCV 89 87 MCH 30.3 30.6 MCHC 34.1 35.0 RDW 13.4 12.8 Plt Count 142 L 142 L Seg Neutrophils % 88.2 H 84.4 H Sodium 137.7 Potassium 3.8 Chloride 100 Carbon Dioxide 28 Anion Gap 10 BUN 12 Creatinine 0.87 Est GFR ( Amer) > 60 Glucose 121 H Calcium 8.7 Total Bilirubin 1.4 H AST 40 Alkaline Phosphatase 51 Total Protein 6.7 Albumin 3.7 03/12/19 04:08 WBC RBC Hgb Hct MCV MCH MCHC RDW Plt Count Seg Neutrophils % Sodium 139.5 Potassium 3.6 Chloride 105 Carbon Dioxide 23 Anion Gap 12 BUN 13 Creatinine 0.83 Est GFR ( Amer) > 60 Glucose 106 Calcium 8.7 Total Bilirubin 1.2 AST 26 Alkaline Phosphatase 51 Total Protein 6.0 L Albumin 3.1 L 03/09/19 03/09/19 07:06 07:06 Creatine Kinase 146 Troponin I < 0.012 Impressions: Chest X-Ray 03/09/19 06:42 IMPRESSION: No acute disease. Abdomen Ultrasound 03/09/19 06:43 IMPRESSION: Cholelithiasis. No evidence of acute cholecystitis. Lung Scan-VQ NM 03/09/19 14:15 IMPRESSION: No ventilation-perfusion mismatches. Assessment & Plan - Diagnosis (1) Cholelithiasis Qualifiers: Cholelithiasis location: gallbladder Cholecystitis presence: with cholecystitis Biliary obstruction: without biliary obstruction Qualified Code(s): K80.20 - Calculus of gallbladder without cholecystitis without obstruction Is this a current diagnosis for this admission?: Yes Plan: Impression: Patient is 2 days status post lap scopic cholecystectomy, with drain placement for acute cholecystitis. Patient had fever and leukocytosis at night; fever resolved and leukocytosis diminished this morning. Feels well. Recommendations: 1. Patient may be discharged home with drain; nursing staff to teach patient and family drain care. 2. Patient can take Tylenol Motrin PRN pain; resume preoperative medications. 3. Patient to follow-up with [place] [facility] on March 17. He is to contact the [facility] oil and gas well treatment operator to communicate with the acute care surgeon installation drafter should any issues arise. 4. The above discussed with nursing staff and hospitalist. (2) CAD (coronary artery disease) Is this a current diagnosis for this admission?: Yes - Time Time Spent with patient: 15-24 minutes
[2019-03-12] MEDS: CEFTRIAXONE 1 GM/D5W RTU 1 GM/50 ML RTUPB IV SCH (09:13)
[2019-03-12] MEDS: METOPROLOL TARTRATE 25 MG TABLET PO SCH (09:13)
[2019-03-12] MEDS: LISINOPRIL 10 MG TABLET PO SCH (09:13)
[2019-03-12] MEDS: ASPIRIN 81 MG TABLET, ENT COATED PO SCH (09:13)
[2019-03-12 12:46] VITALS: BP 99/78
--- NOTE | 2019-03-17 17:21 | PDOC DISCHARGE SUMMARY ---
Impression - Admit/DC Date/PCP Admission Date/Primary Care Provider: 03/09/19 16:04 CAROL ANN KNIGHT MD Discharge Date: 03/12/19 - Discharge Diagnosis (1) Acute cholecystitis Is this a current diagnosis for this admission?: Yes (2) CAD (coronary artery disease) Is this a current diagnosis for this admission?: Yes (3) Cholelithiasis Is this a current diagnosis for this admission?: Yes (4) Epigastric pain Is this a current diagnosis for this admission?: Yes (5) Hypertension Is this a current diagnosis for this admission?: Yes (6) Leukocytosis Is this a current diagnosis for this admission?: Yes - Assessment Summary: 03/11/2019 His vital signs are stable temperature 99.1, pulse 71 and regular, blood pressure is 136/71 ,O2 sats 94% on room air Patient is sitting up in the chair with no complaints Labs appear stable, culture shows no growth in 48 hours Currently on IV Rocephin postop day #1 03 12 19 Patient has been seen by general surgery today as well as myself he is sitting up in chair tolerating full liquids having no complaints She was instructed to follow-up with surgery clinic on March 17 He is to contact the surgeons for any issues No antibiotics are prescribed She was told to take [id number] pain medicine as needed Patient is medically stable for discharge - Additional Information Resuscitation Status: Do Not Resuscitate Discharge Diet: As Tolerated Discharge Activity: Bedrest, No Driving, No Lifting Over 10 Pounds, No L ifting/Push/Pulling, Slowly Increase Activity Referrals: [facility] [Provider Group] - 03/18/19 1:45 pm Home Medications: Aspirin [Ecotrin 81 mg EC Tablet] 81 mg PO DAILY 03/09/19 Atorvastatin Calcium [Lipitor 20 mg Tablet] 20 mg PO QPM 03/09/19 Lisinopril [Prinivil 10 mg Tablet] 10 mg PO DAILY 03/09/19 Metoprolol Tartrate [Lopressor 25 mg Tablet] 25 mg PO Q12 03/09/19 Nitroglycerin [Nitrostat] 0.3 mg SL Q5MP PRN 03/09/19 Vitamin B Complex [Super B Complex] 1 each PO QPM 03/09/19 History of Present Illiness History of Present Illness: SHIRA DICKENS is a 68 year old male Physical Exam Vital Signs: Temp Pulse Resp BP Pulse Ox 99.6 F 58 L 19 136/49 H 94 03/12/19 12:23 03/12/19 12:23 03/12/19 12:23 03/12/19 12:23 03/12/19 12:23 Results Laboratory Results: WBC 14.7 10^3/uL (4.0-10.5) H 03/12/19 04:08 RBC 4.06 10^6/uL (4.35-5.55) L 03/12/19 04:08 Hgb 12.4 g/dL (13.5-17.0) L 03/12/19 04:08 Hct 35.5 % (37.9-51.0) L 03/12/19 04:08 MCV 87 fl (80-97) 03/12/19 04:08 MCH 30.6 pg (27.0-33.4) 03/12/19 04:08 MCHC 35.0 g/dL (32.0-36.0) 03/12/19 04:08 RDW 12.8 % (11.5-14.0) 03/12/19 04:08 Plt Count 142 10^3/uL (150-450) L 03/12/19 04:08 Lymph % (Auto) 6.2 % (13-45) L 03/12/19 04:08 [place] % (Auto) 8.5 % (3-13) 03/12/19 04:08 Eos % (Auto) 0.6 % (0-6) 03/12/19 04:08 Baso % (Auto) 0.3 % (0-2) 03/12/19 04:08 Absolute Neuts (auto) 12.4 10^3/uL (1.7-8.2) H 03/12/19 04:08 Absolute Lymphs (auto) 0.9 10^3/uL (0.5-4.7) 03/12/19 04:08 Absolute Monos (auto) 1.3 10^3/uL (0.1-1.4) 03/12/19 04:08 Absolute Eos (auto) 0.1 10^3/uL (0.0-0.6) 03/12/19 04:08 Absolute Basos (auto) 0.0 10^3/uL (0.0-0.2) 03/12/19 04:08 Total Counted 100 03/09/19 07:06 Seg Neutrophils % 84.4 % (42-78) H 03/12/19 04:08 Seg Neuts % (Manual) 89 % (42-78) H 03/09/19 07:06 Lymphocytes % (Manual) 6 % (13-45) L 03/09/19 07:06 Monocytes % (Manual) 5 % (3-13) 03/09/19 07:06 Eosinophils % (Manual) 0 % (0-6) 03/09/19 07:06 Basophils % (Manual) 0 % (0-2) 03/09/19 07:06 Abs Neuts (Manual) 15.3 10^3/uL (1.7-8.2) H 03/09/19 07:06 Abs Lymphs (Manual) 1.0 10^3/uL (0.5-4.7) 03/09/19 07:06 Abs Monocytes (Manual) 0.9 10^3/uL (0.1-1.4) 03/09/19 07:06 Absolute Eos (Manual) 0.0 10^3/uL (0.0-0.6) 03/09/19 07:06 Abs Basophils (Manual) 0.0 10^3/uL (0.0-0.2) 03/09/19 07:06 Toxic Vacuolation PRESENT 03/09/19 07:06 Platelet Comment ADEQUATE 03/09/19 07:06 RBC Morph Comment N 03/09/19 07:06 D-Dimer 0.78 ug/mL (0.00-0.50) H 03/09/19 07:06 Sodium 139.5 mmol/L (137-145) 03/12/19 04:08 Potassium 3.6 mmol/L (3.6-5.0) 03/12/19 04:08 Chloride 105 mmol/L (98-107) 03/12/19 04:08 Carbon Dioxide 23 mmol/L (22-30) 03/12/19 04:08 Anion Gap 12 (5-19) 03/12/19 04:08 BUN 13 mg/dL (7-20) 03/12/19 04:08 Creatinine 0.83 mg/dL (0.52-1.25) 03/12/19 04:08 Est GFR ( Amer) > 60 (>60) 03/12/19 04:08 Est GFR (MDRD) Non-Af > 60 (>60) 03/12/19 04:08 Glucose 106 mg/dL (75-110) 03/12/19 04:08 Calcium 8.7 mg/dL (8.4-10.2) 03/12/19 04:08 Total Bilirubin 1.2 mg/dL (0.2-1.3) 03/12/19 04:08 Direct Bilirubin 0.2 mg/dL (0.0-0.4) 03/12/19 04:08 Neonat Total Bilirubin Not Reportable 03/12/19 04:08 Neonat Direct Bilirubin Not Reportable 03/12/19 04:08 Neonat Indirect Bili Not Reportable 03/12/19 04:08 AST 26 U/L (17-59) 03/12/19 04:08 ALT 35 U/L (<50) 03/12/19 04:08 Alkaline Phosphatase 51 U/L (38-126) 03/12/19 04:08 Creatine Kinase 146 U/L (55-170) 03/09/19 07:06 Troponin I < 0.012 ng/mL 03/09/19 07:06 Total Protein 6.0 g/dL (6.3-8.2) L 03/12/19 04:08 Albumin 3.1 g/dL (3.5-5.0) L 03/12/19 04:08 Lipase 127.9 U/L (23-300) 03/09/19 07:06 Urine Color YELLOW 03/09/19 08:48 Urine Appearance SLIGHTLY-CLOUDY 03/09/19 08:48 Urine pH 8.0 (5.0-9.0) 03/09/19 08:48 Ur Specific [place] 1.021 03/09/19 08:48 Urine Protein NEGATIVE mg/dL (NEGATIVE) 03/09/19 08:48 Urine Glucose (UA) NEGATIVE mg/dL (NEGATIVE) 03/09/19 08:48 Urine Ketones NEGATIVE mg/dL (NEGATIVE) 03/09/19 08:48 Urine Blood NEGATIVE (NEGATIVE) 03/09/19 08:48 Urine Nitrite NEGATIVE (NEGATIVE) 03/09/19 08:48 Urine Bilirubin NEGATIVE (NEGATIVE) 03/09/19 08:48 Urine Urobilinogen 4.0 mg/dL (<2.0) H 03/09/19 08:48 Ur Leukocyte Esterase NEGATIVE (NEGATIVE) 03/09/19 08:48 Urine WBC (Auto) 1 /HPF 03/09/19 08:48 Urine RBC (Auto) 3 /HPF 03/09/19 08:48 Urine Mucus (Auto) RARE /LPF 03/09/19 08:48 Urine Ascorbic Acid NEGATIVE (NEGATIVE) 03/09/19 08:48 03/09/19 07:06 Troponin I < 0.012 Impressions: Chest X-Ray 03/09/19 06:42 IMPRESSION: No acute disease. Abdomen Ultrasound 03/09/19 06:43 IMPRESSION: Cholelithiasis. No evidence of acute cholecystitis. Lung Scan-VQ NM 03/09/19 14:15 IMPRESSION: No ventilation-perfusion mismatches. Stroke Is this a Stroke Patient?: No Acute Heart Failure - Is this a Heart Failure Patient?: No
== END 2019-03-12 13:00 | disposition home or self-care (01) | DRG 419 ==
LOC: ER 05:57 → EH 13:14 → 4N 14:05 → OBSVTOIN 16:04
PROVIDERS: ADMIT Internal Medicine; ATTEND Internal Medicine
PROC: 0FT44ZZ Resection of Gallbladder, Percutaneous Endoscopic Approach (ICD-10-PCS; principal; 2019-03-09)
PROC: 0W9G4ZZ Drainage of Peritoneal Cavity, Percutaneous Endoscopic Approach (ICD-10-PCS; 2019-03-09)
DX: K80.00 Calculus of gallbladder with acute cholecystitis without obstruction (principal); I25.10 Atherosclerotic heart disease of native coronary artery without angina pectoris; E78.5 Hyperlipidemia, unspecified; I10 Essential (primary) hypertension; R07.89 Other chest pain; Z66 Do not resuscitate; E78.00 Pure hypercholesterolemia, unspecified; D72.829 Elevated white blood cell count, unspecified; Z95.5 Presence of coronary angioplasty implant and graft; Z95.1 Presence of aortocoronary bypass graft; Z87.891 Personal history of nicotine dependence; Z91.048 Other nonmedicinal substance allergy status; Z79.82 Long term (current) use of aspirin; Z79.899 Other long term (current) drug therapy
CPT/HCPCS: 36415; 71045; 76705; 78582; 790; 80053; 81001; 82550; 83690; 84484; 85025; 85379; 87040; 88304; 93005; 93010; 96361; 96365; 99285; A9540; A9567; G0378; J0330; J0696; J1100; J1644; J2250; J2405; J2543; J2704; J2710; J3010; J3490; J7030; Q9969